=== PATIENT | female | born 1950 | race American Indian/Alaskan Native ===

== ENCOUNTER 2019-02-03 09:40 | Outpatient (CLI) | payer MEDICARE, OTHER ==
--- NOTE | 2019-02-03 15:59 | Ultrasound Report ---
Right breast ultrasound INDICATION: Palpable abnormality in the right breast FINDINGS: In the 1:00 position of the right breast in a periareolar location there is a 7 x 3 cm mica d nodule there is some increased vascularity along the margin of this nodule. The margins are irregul ar. There is no shadowing. The lesion is wider than tall. IMPRESSION: There is a solid nodule in the right breast 1:00 position corresponding to the area of pa lpable concern. This is a suspicious abnormality. Ultrasound-guided biopsy is recommended. Signer Name: Reggie Musa MD Signed: 02/03/2019 3:54 PM Workstation Name: [id number]
--- NOTE | 2019-02-03 16:04 | Mammography Report ---
DIGITAL DIAGNOSTIC MAMMOGRAM WITH CAD, 02/03/2019 INDICATION: Palpable abnormality in the 1:00 position of the right breast in the periareolar location TECHNIQUE: Digital right mammographic imaging was performed. This examination was interpreted with the benefit of Computer-Aided Detection (CAD) analysis. COMPARISON: 10/10/2018 FINDINGS: Breast Density: There are scattered areas of fibroglandular density. There is no evidence of dominant mass, suspicious calcifications or architectural distortion in the r ight breast. No discrete mammographic abnormality is seen to correspond to the sonographic abnormalit y. Ultrasound revealed a solid suspicious nodule in the 1:00 position corresponding to the area of palpa ble concern. IMPRESSION: BI-RADS Category 4: Suspicious for Malignancy. No mammographic abnormality is identified. Ultrasound revealed a suspicious nodule in the 1:00 position periareolar location of the right breast . Ultrasound-guided biopsy is recommended. A "normal" or negative report should not discourage follow up or biopsy of a clinically significant f inding. A written summary of these findings will be mailed to the patient. The patient will be entered into a mammography reporting system which will generate a reminder letter for the patient's next appointmen t at the appropriate interval. FURTHER INFORMATION: According to the [employer], yearly mammograms are recommend ed starting at age 40 and continuing as long as a woman is in good health. Clinical Breast Exams shou ld be part of a periodic health exam-about every 3 years for women in their 20s and 30s and every yea r for women 40 and over. Breast self exam is an option for women starting in their 20s. Any breast ch shine noted on a breast self exam should be reported promptly to the patient's healthcare provider. Br east MRI is recommended for women with an approximately 20-25% or greater lifetime risk of breast can cer, including women with a strong family history of breast or ovarian cancer and women who have been treated for Hodgkin's disease. Signer Name: Reggie Musa MD Signed: 02/03/2019 3:59 PM Workstation Name: [id number]
== END 2019-02-03 09:41 | disposition home or self-care (01) ==
LOC: US 09:40
PROVIDERS: ATTEND Internal Medicine
DX: N63.12 Unspecified lump in the right breast, upper inner quadrant (principal)